=== PATIENT | female | born 1945 | race Caucasian/White ===

== ENCOUNTER → 2017-03-28 | Outpatient (CLI) | payer MEDICARE, OTHER ==
[2006-05-07 09:25] VITALS: TEMP 98
== END ==
LOC: MC.RAD 13:56
DX: Z12.31 Encounter for screening mammogram for malignant neoplasm of breast (principal)

== ENCOUNTER 2017-10-27 05:57 | Emergency (ER) | payer MEDICARE, OTHER ==
[~2017-10-27] VITALS: Ht 154.9 cm; Wt 107.3 kg
[2017-10-27 06:02] VITALS: TEMP 97
[2017-10-27] MEDS ORDERED: TOPROL XL100 MG PO (06:25)
[2017-10-27] MEDS ORDERED: BENICAR40 MG PO (06:25)
[2017-10-27] MEDS ORDERED: ALDACTONE 25MG25 M1 PO (06:25)
[2017-10-27] MEDS ORDERED: LIPITOR 10MG10 MG PO (06:26)
[2017-10-27] MEDS ORDERED: LEVOXYL0.15 MG PO (06:26)
[2017-10-27] MEDS ORDERED: ZITHROMAX Z PA250 MG PO (06:26)
[2017-10-27 06:38] LABS: BASO % 0.2 % (0.0-2.0); EOS % 0.9 % (0-4.0); GRAN # 2.9 (1.4-6.5); GRAN % 63.3 % (42.2-75.2); HEMATOCRIT 39.8 % (37.0-47.0); HEMOGLOBIN 13.7 g/dl (12.5-16.0); LYMPH # 1.3 (1.2-3.4); LYMPH % 29.2 % (20.0-51.0); MEAN CELL VOLUME 95 fl (80.0-100.0); MEAN CORPUSCULAR HEMOGLOBIN 33 pg (27.0-31.0); MEAN CORPUSCULAR HGB CONC 34 g/dl (33.0-37.0); MEAN PLATELET VOLUME 11.3 fl (7.4-10.4); MONO # 0.3 (0.1-0.6); MONO % 6.2 % (1.7-9.3); PLATELET COUNT 167 K/mm3 (130-400); REDCELL DISTRIBUTION WIDTH-CV 11.5 % (11.5-14.5)
[2017-10-27 06:54] LABS: ALBUMIN 4.1 gm/dL (3.5-5.0); BILIRUBIN,TOTAL 0.8 mg/dL (0.0-1.0); CALCIUM 9.2 mg/dL (8.4-10.2); CREATININE, serum 0.68 mg/dL (0.52-1.25); POTASSIUM 3.9 mmol/L (3.4-5.0); TOTAL PROTEIN 7.1 gm/dL (6.4-8.2)
[2017-10-27 08:39] VITALS: BP 151/70; PULSE 65
== END 2017-10-27 08:39 | disposition home or self-care (01) ==
LOC: COL.ER 05:57
PROVIDERS: Emergency Medicine
DX: R19.7 Diarrhea, unspecified (principal); J34.89 Other specified disorders of nose and nasal sinuses; I10 Essential (primary) hypertension; R09.81 Nasal congestion; E03.9 Hypothyroidism, unspecified; Z90.49 Acquired absence of other specified parts of digestive tract
CPT/HCPCS: J7120